=== PATIENT | female | born 1990 | race Caucasian/White ===

== ENCOUNTER 2023-08-08 10:34 | Emergency (ER) | payer MEDICAID ==
[~2023-08-08] VITALS: Ht 160 cm; Wt 74.3 kg
[2023-08-08] MEDS ORDERED: CEPH500C2 PO (12:04)
[2023-08-08 12:15] VITALS: BP 146/93; PULSE 76; RESP 16; TEMP 98.3; O2SAT 99
[2023-08-08] MEDS ORDERED: CEPH-585 PO (18:54)
== END 2023-08-08 12:16 | disposition home or self-care (01) ==
LOC: ER 10:35
DX: H00.031 Abscess of right upper eyelid (principal)
CPT/HCPCS: 99283